=== PATIENT | female | born 1975 | race Caucasian/White ===

== ENCOUNTER 2020-01-14 00:49 | Emergency (ER) | payer OTHER ==
[~2020-01-14] VITALS: Ht 167.6 cm; Wt 72.6 kg
[2020-01-14 00:59] VITALS: BP 140/87
[2020-01-14] MEDS ORDERED: KEFLEX500 M1 PO (01:28)
[2020-01-14] MEDS ORDERED: IBUPROFEN 800800 MG PO (01:28)
[2020-01-14] MEDS ORDERED: TYLENOL WITH CO1 TA1 PO (01:28)
== END 2020-01-14 01:38 | disposition home or self-care (01) ==
LOC: M.ERS 00:49
DX: K02.9 Dental caries, unspecified (principal); H92.02 Otalgia, left ear; F17.210 Nicotine dependence, cigarettes, uncomplicated; Z90.721 Acquired absence of ovaries, unilateral; Z98.51 Tubal ligation status; Z88.0 Allergy status to penicillin